=== PATIENT | female | born 1990 | race Caucasian/White ===

== ENCOUNTER 2017-01-31 03:34 | Emergency (ER) | payer OTHER ==
[~2017-01-31] VITALS: Ht 170.2 cm; Wt 47.6 kg
[2017-01-31 05:25] VITALS: BP 101/66
== END 2017-01-31 05:25 | disposition home or self-care (01) ==
LOC: ED 03:34
DX: O26.891 Other specified pregnancy related conditions, first trimester (principal); R10.32 Left lower quadrant pain; F41.9 Anxiety disorder, unspecified; Z3A.11 11 weeks gestation of pregnancy

== ENCOUNTER 2017-02-13 09:34 | Emergency (ER) | payer OTHER ==
[2017-02-13 10:33] LABS: BASOPHIL % 0.6 % (0-2); PLATELET COUNT 215 x10^3mcL (130-400); RED CELL DISTRIBUTION WIDTH 14.1 % (11.5-14.5)
[2017-02-13 11:31] LABS: microscopic required? NO
[2017-02-13 11:38] LABS: urine erythrocyte NEGATIVE (NEGATIVE)
[2017-02-13 12:54] VITALS: BP 117/88
== END 2017-02-13 12:54 | disposition home or self-care (01) ==
LOC: ED 09:34
PROVIDERS: Specialist
DX: O20.0 Threatened abortion (principal); Z3A.13 13 weeks gestation of pregnancy
CPT/HCPCS: 36415; 87491; 87591

== ENCOUNTER 2018-01-17 04:29 | Emergency (ER) | payer OTHER ==
[~2018-01-17] VITALS: Ht 170.2 cm; Wt 44.6 kg
[2018-01-17 05:12] LABS: BASOPHIL % 0.3 % (0-2); PLATELET COUNT 218 x10^3mcL (130-400); RED CELL DISTRIBUTION WIDTH 15.2 % (11.5-14.5)
[2018-01-17 05:16] LABS: CALCIUM 8.6 mg/dL (8.5-10.1); CARBON DIOXIDE 21.5 mmol/L (21-32); CHLORIDE SERUM 103 mmol/L (98-107); CREATININE SERUM 0.7 mg/dL (0.6-1.0); GFR1 > 60 mL/min; GLUCOSE SERUM 113 mg/dL (74-106); POTASSIUM SERUM 3.6 mmol/L (3.5-5.1); SODIUM SERUM 136 mmol/L (136-145)
[2018-01-17 05:21] LABS: ALBUMIN 4.2 g/dL (3.4-5.0); ALKALINE PHOSPHATASE 65 U/L (46-116); ALT/SGPT 21 U/L (14-59); AST/SGOT 18 U/L (15-37); BILIRUBIN TOTAL 0.56 mg/dL (0.20-1.00)
[2018-01-17 06:07] VITALS: BP 91/57
== END 2018-01-17 06:07 | disposition home or self-care (01) ==
LOC: ED 04:29
PROVIDERS: Emergency Medicine
DX: F41.9 Anxiety disorder, unspecified (principal); R63.4 Abnormal weight loss; R53.1 Weakness
CPT/HCPCS: 36415

== ENCOUNTER 2018-01-25 23:09 | Emergency (ER) | payer OTHER ==
[~2018-01-25] VITALS: Ht 170.2 cm; Wt 42.6 kg
[2018-01-25 23:17] VITALS: Ht 170.2 cm; Wt 42.6 kg
[2018-01-26 00:04] LABS: BASOPHIL % 0.6 % (0-2); PLATELET COUNT 167 x10^3mcL (130-400)
[2018-01-26 00:12] LABS: CALCIUM 8.1 mg/dL (8.5-10.1); CARBON DIOXIDE 23.2 mmol/L (21-32); CHLORIDE SERUM 100 mmol/L (98-107); CREATININE SERUM 0.7 mg/dL (0.6-1.0); GFR1 > 60 mL/min; GLUCOSE SERUM 128 mg/dL (74-106); POTASSIUM SERUM 3.4 mmol/L (3.5-5.1); SODIUM SERUM 133 mmol/L (136-145)
[2018-01-26 00:17] LABS: ALBUMIN 3.5 g/dL (3.4-5.0); ALKALINE PHOSPHATASE 52 U/L (46-116); ALT/SGPT 17 U/L (14-59); AST/SGOT 17 U/L (15-37); BILIRUBIN TOTAL 0.7 mg/dL (0.20-1.00); TOTAL PROTEIN, SERUM 7.1 g/dL (6.4-8.2)
[2018-01-26 02:20] VITALS: BP 108/66
== END 2018-01-26 02:20 | disposition home or self-care (01) ==
LOC: ED 23:09
PROVIDERS: Emergency Medicine
DX: N39.0 Urinary tract infection, site not specified (principal); M79.10 Myalgia, unspecified site; R65.10 Systemic inflammatory response syndrome (SIRS) of non-infectious origin without acute organ dysfunction; F41.9 Anxiety disorder, unspecified; Z98.82 Breast implant status
CPT/HCPCS: 87804; J2543; J7030; Q0092

== ENCOUNTER 2018-01-26 19:02 | Emergency (ER) | payer OTHER ==
[2018-01-26 20:19] VITALS: BP 101/75
== END 2018-01-26 20:19 | disposition home or self-care (01) ==
LOC: ED 19:02
DX: F41.9 Anxiety disorder, unspecified (principal); Z98.82 Breast implant status

== ENCOUNTER 2018-01-30 08:54 | Emergency (ER) | payer OTHER ==
[~2018-01-30] VITALS: Ht 172.7 cm; Wt 42.2 kg
[2018-01-30 09:01] VITALS: BP 118/75; Ht 172.7 cm; Wt 42.2 kg
== END 2018-01-30 10:00 | disposition home or self-care (01) ==
LOC: ED 08:54
DX: R30.0 Dysuria (principal); R31.9 Hematuria, unspecified; G47.00 Insomnia, unspecified; R63.0 Anorexia; F41.9 Anxiety disorder, unspecified; Z98.82 Breast implant status

== ENCOUNTER 2018-02-02 00:29 | Emergency (ER) | payer OTHER ==
[~2018-02-02] VITALS: Ht 170.2 cm; Wt 44.0 kg
[2018-02-02 00:38] VITALS: Ht 170.2 cm; Wt 44.0 kg
[2018-02-02 01:07] LABS: BASOPHIL % 0.7 % (0-2); PLATELET COUNT 331 x10^3mcL (130-400)
[2018-02-02 01:09] LABS: RED CELL DISTRIBUTION WIDTH 15.4 % (11.5-14.5)
[2018-02-02 01:19] LABS: CALCIUM 8.3 mg/dL (8.5-10.1); CARBON DIOXIDE 30.5 mmol/L (21-32); CHLORIDE SERUM 107 mmol/L (98-107); CREATININE SERUM 0.8 mg/dL (0.6-1.0); GFR1 > 60 mL/min; GLUCOSE SERUM 109 mg/dL (74-106); POTASSIUM SERUM 3.4 mmol/L (3.5-5.1); SODIUM SERUM 143 mmol/L (136-145)
[2018-02-02 01:23] LABS: ALBUMIN 3.6 g/dL (3.4-5.0); ALKALINE PHOSPHATASE 63 U/L (46-116); ALT/SGPT 17 U/L (14-59); AST/SGOT 9 U/L (15-37); BILIRUBIN TOTAL 0.22 mg/dL (0.20-1.00); TOTAL PROTEIN, SERUM 7.2 g/dL (6.4-8.2)
[2018-02-02 01:42] VITALS: BP 108/67
== END 2018-02-02 01:42 | disposition home or self-care (01) ==
LOC: ED 00:29
PROVIDERS: Emergency Medicine
DX: R51 Headache (principal); R53.1 Weakness; F41.9 Anxiety disorder, unspecified; Z98.86 Personal history of breast implant removal
CPT/HCPCS: J2765; J7030

== ENCOUNTER 2018-02-10 22:35 | Emergency (ER) | payer OTHER ==
[~2018-02-10] VITALS: Ht 170.2 cm; Wt 43.1 kg
[2018-02-10 22:44] VITALS: Ht 170.2 cm; Wt 43.1 kg
[2018-02-11 00:04] LABS: microscopic required? NO
[2018-02-11 00:29] LABS: UA SPECIFIC GRAVITY >=1.030 (1.005-1.035); urine erythrocyte NEGATIVE (NEGATIVE)
[2018-02-11 01:23] VITALS: BP 116/86
== END 2018-02-11 02:54 | disposition home or self-care (01) ==
LOC: ED 22:35
PROVIDERS: Emergency Medicine
DX: N89.8 Other specified noninflammatory disorders of vagina (principal); F41.9 Anxiety disorder, unspecified; Z98.890 Other specified postprocedural states; Z88.1 Allergy status to other antibiotic agents
CPT/HCPCS: 87491; 87591; J0696; J2001; Q0162

== ENCOUNTER 2018-02-27 13:36 | Emergency (ER) | payer OTHER ==
[~2018-02-27] VITALS: Ht 170.2 cm; Wt 41.9 kg
[2018-02-27 13:54] VITALS: Ht 170.2 cm; Wt 41.9 kg
[2018-02-27 15:31] VITALS: BP 123/70
== END 2018-02-27 15:31 | disposition home or self-care (01) ==
LOC: ED 13:36
DX: R51 Headache (principal); R11.0 Nausea; H53.149 Visual discomfort, unspecified; F41.9 Anxiety disorder, unspecified; Z88.1 Allergy status to other antibiotic agents; Z98.890 Other specified postprocedural states